=== PATIENT | male | born 1980 | race Caucasian/White ===

== ENCOUNTER 2016-09-06 18:13 | Emergency (ER) | payer OTHER ==
[2016-09-06] MEDS ORDERED: Lidocaine 1% w/Epinephrine 1:100K 20 ML VIAL ONE (18:49)
--- NOTE | 2016-09-06 19:29 | ERRECORD ---
[facility] EMERGENCY RECORD HPI ABSCESS (18:49 SROB) CHIEF COMPLAINT: Patient presents for evaluation of swelling, Patient presents for evaluation of pain. HISTORIAN: History provided by patient, This 36 yo male co onset of pain, swelling redness on left adams for the last 3 days, with increase swelling and tenderness today. LOCATION: Symptoms are localized, most severe to left adams. QUALITY: Pain is dull in nature, described as throbbing. SEVERITY: Maximum severity of pain rated as 7/10, Current severity of pain rated as 7/10. TIME COURSE: Gradual onset of symptoms. ASSOCIATED WITH: No associated symptoms. COMPLICATING FACTORS: No complicating factors for wound healing. EXACERBATED BY: Patient's condition exacerbated by nothing. TETANUS: Tetanus status up to date. ROS (18:51 SROB) CONSTITUTIONAL: Negative constitutional review of systems. EYES: Negative eye review of systems. ENT: Negative ears, nose, throat review of systems. CARDIOVASCULAR: Negative cardiovascular review of systems. RESPIRATORY: Negative respiratory review of systems. GI: Negative gastrointestinal review of systems. GENITOURINARY MALE: Negative genitourinary review of systems. SKIN: psoriasis as well as abscess on left adams. NEUROLOGIC: Negative neurologic review of systems. HEMO/LYMPHATIC: Normal hematologic/lymphatic system review. PSYCHIATRIC: Negative psychiatric review of systems. PAST MEDICAL HISTORY MEDICAL HISTORY: No past medical history, Tetanus not up to date. (18:28 EPIE) Notes: Psoriasis. (18:53 SROB) MALE SURGICAL HISTORY: Surgical history of orthopedic surgery, left foot. (18:28 EPIE) SEE NN. (18:53 SROB) PSYCHIATRIC HISTORY: No previous psychiatric history. (18:28 EPIE) SOCIAL HISTORY: Patient drinks socially, every week, Patient denies drug use, Patient currently uses tobacco, smokes cigarettes, Patient smokes 1 pack per day. (18:28 EPIE) Patient drinks socially, every week, Patient denies drug use, Patient currently uses tobacco, smokes cigarettes. (18:53 SROB) FAMILY HISTORY: Notes: Diabetes mellitis, cardiac, Paternal history of cardiac disease:, Paternal history of diabetes:. (18:53 SROB) NOTES: Nursing records reviewed, Agree with nursing records. (18:53 SROB) &a-1R&a+25V*p+0X*q5757H*c152B*c15G*c2P*p-0X&a-25V&a+1R Name: Redd Lucas : 1980 M36 MedRec: [id number] AcctNum: [id number] Prepared: Sat Sep 06, 2016 19:24 by Interface Page 1 of 3 pMD [facility] EMERGENCY RECORD KNOWN ALLERGIES No Known Drug Allergies CURRENT MEDICATIONS (18:27 EPIE) None VITAL SIGNS (18:24 EPIE) VITAL SIGNS: BP: 156/89, Pulse: 106, Resp: 18 (Non-Labored), Temp: 97.7 (Oral), Pain: 7, O2 sat: 97 on Room Air, Time: 09/06/2016 18:24. PHYSICAL EXAM (18:52 SROB) CONSTITUTIONAL: Vital signs reviewed. HEAD: Head exam normal. EYES: Eye exam normal. NECK: Neck exam normal. RESPIRATORY CHEST: Respiratory and chest exam normal. CARDIOVASCULAR: Cardiovascular assessment normal. ABDOMEN MALE: Abdominal exam normal. UPPER EXTREMITY: Upper extremity exam normal. LOWER EXTREMITY: Lower extremity exam included findings of inspection abnormal, There is a fluctuant tender mass in the mid left adams area measuring about 4 cm in diameter. NEURO: Neuro exam normal. SKIN: See extremity exam for description of left adams abscess. PSYCHIATRIC: Psychiatric exam normal. PROBLEM LIST No recorded problems DIAGNOSIS (19:13 SROB) FINAL: PRIMARY: cutaneous abscess left leg, ADDITIONAL: cutaneous abascess left leg. PRESCRIPTION Bactrim DS: TABLET : 800 mg-160 mg : ORAL : Quantity: 2 Unit: tab(s) Route: ORAL Schedule: 2 times a day (after meals) Dispense: 40 Unit: tab(s) May substitute. Refills: No Refills . (19:09 SROB) NOTES: No Refills. (19:09 SROB) Bactroban topical ointment: OINTMENT (GRAM) : 2 % : TOPICAL : Quantity: 1 Unit: sukhdeep Route: TOPICAL Schedule: 3 times a day Dispense: 1 Unit: Tube May substitute. Refills: No Refills . (19:11 SROB) NOTES: Apply to both nostrils inside 3 times daily No Refills. (19:11 SROB) acetaminophen-codeine: TABLET : 325 mg-30 mg : ORAL : Quantity: 1-2 Unit: tab(s) Route: ORAL Schedule: every 6 hours PRN Dispense: 20 Unit: tab(s) May substitute. Refills: No Refills . (19:12 SROB) &a-1R&a+25V*p+0X*[id number]*c152B*c15G*c2P*p-0X&a-25V&a+1R Name: Redd Lucas : 1980 M36 MedRec: [id number] AcctNum: [id number] Prepared: Burton Sep 06, 2016 19:24 by Interface Page 2 of 3 pMD [facility] EMERGENCY RECORD NOTES: No Refills. (19:12 SROB) DISPOSITION PATIENT: Disposition Type: Discharge, Disposition: *Discharge Home, Disposition Transport: Ambulatory, Condition: Good. (19:12 SROB) Patient left the department. (19:23 MBOS) Mayo: EPIE=GUERRERO Hardy, Caron MBOS=GUERRERO Gonsales, Megan SROB=MD Jose Cruz, [facility] &a-1R&a+25V*p+0X*r8206B*c152B*c15G*c2P*p-0X&a-25V&a+1R Name: Redd Lucas : 1980 M36 MedRec: [id number] AcctNum: [id number] Prepared: Burton Sep 06, 2016 19:24 by Interface Page 3 of 3 pMD MTDD
--- NOTE | 2016-09-06 19:32 | PICIS ---
[facility] EMERGENCY RECORD TRIAGE ([facility] Sep 06, 2016 18:27 EPIE) TRIAGE NOTES: Pt states he has a left leg abscess starting a few days ago. Pt states that it was red 3 days ago and started getting big (knot) last night. ([facility] Sep 06, 2016 18:27 EPIE) PATIENT: NAME: Redd Lucas, AGE: 36, GENDER: male, : [facility] 1980, TIME OF GREET: Sat Sep 06, 2016 18:13, PREFERRED LANGUAGE: Albanian, ETHNICITY: Not or , ECODE BILLING MAP: [facility], SSN: [id number], Zip Code: [address], KG WEIGHT: 158.76, PHONE: , , , PERSON ID: [id number], PCP: none. ([facility] Sep 06, 2016 18:27 EPIE) COMPLAINT: LEFT LEG ABSCESS. ([facility] Sep 06, 2016 18:27 EPIE) ADMISSION: URGENCY: 4 Non Urgent, ADMISSION SOURCE: Home, TRANSPORT: CAR, BED: TRIAGE. ([facility] Sep 06, 2016 18:27 EPIE) TRIAGE SCREENING: Patient denies suicidal ideation, Patient denies presence of domestic violence. (18:28 EPIE) TREATMENTS IN PROGRESS: Treatments given Prehospital: motrin in the AM. (18:28 EPIE) PROVIDERS: TRIAGE NURSE: Caron Hardy RN. ([facility] Sep 06, 2016 18:27 EPIE) VITAL SIGNS: BP 156/89, Pulse 106, Resp 18, (Non-Labored), Temp 97.7, (Oral), Pain 7, O2 Sat 97, on Room Air, Time 09/06/2016 18:24. (18:24 EPIE) PREVIOUS VISIT ALLERGIES: No Known Drug Allergies. ([facility] Sep 06, 2016 18:27 EPIE) No Known Drug Allergies. (18:28 EPIE) KNOWN ALLERGIES No Known Drug Allergies CURRENT MEDICATIONS (18:27 EPIE) None VITAL SIGNS (18:24 EPIE) VITAL SIGNS: BP: 156/89, Pulse: 106, Resp: 18 (Non-Labored), Temp: 97.7 (Oral), Pain: 7, O2 sat: 97 on Room Air, Time: 09/06/2016 18:24. NURSING ASSESSMENT: SKIN (18:35 EPIE) CONSTITUTIONAL: Patient arrives ambulatory, Gait steady, History obtained from patient, Patient appears comfortable, Patient cooperative, Patient alert, Oriented to person, place and time, Skin warm, Skin dry, Skin normal in color, Mucous membranes pink, Mucous membranes moist, Patient is well-groomed. PAIN: aching pain, throbbing pain, left adams, Onset of pain 09/03/2016, on a scale 0-10 patient rates pain as 7. SKIN: Skin assessment findings include skin warm, Skin dry, Skin normal in color, Inspection findings include redness, to left adams, Inspection findings include signs of infection, to left adams, Notes: pt has abscess to &a-1R&a+25V*p+0X*k4301V*c152B*c15G*c2P*p-0X&a-25V&a+1R Name: Redd Lucas : 1980 M36 MedRec: [id number] AcctNum: [id number] Prepared: Sat Sep 06, 2016 19:31 by Interface Page 1 of 5 pMD [facility] EMERGENCY RECORD left adams. Pt has hx of multiple abscess'. NURSING PROCEDURE: DISCHARGE NOTE (19:21 MBOS) DISCHARGE: Patient discharged to home, ambulating without assistance, driving self, unaccompanied, Summary of Care printed/ provided, Discharge instructions given to patient, Simple or moderate discharge teaching performed, Prescriptions given and instructions on side effects given, Above person(s) verbalized understanding of discharge instructions and follow-up care, Patient treated and evaluated by physician. NURSING PROCEDURE: WOUND CARE (19:13 MBOS) PATIENT IDENTIFIER: Patient actively involved in identification process, Patient's identity verified by patient stating name, Patient's identity verified by patient stating date, Patient's identity verified by hospital ID bracelet. TIMEOUT: Prior to procedure, correct patient verified by, Correct procedure verified, Correct site verified, Physician performing procedure Dr. Billingsley. WOUND CARE: Wound care indicated to promote healing, Wound site: left lower leg, Cause of wound: abscess/cellulitis, Local infiltration with. FOLLOW-UP: After procedure, simple dressing applied, using 4x4 dressing, wrapped with 4 inch conform bandage, After procedure, capillary refill less than 2 seconds, After procedure, distal circulation intact, After procedure, distal motor intact, After procedure, distal sensation intact, After procedure, distal pulses present. SAFETY: Side rails up, Cart/Stretcher in lowest position, Call light within reach, Hospital ID band on. ORDER DETAILS Order Name: chart element #1, Status: Active, Time: 19:13 09/06/2016, User: System, - Ordered for: MD Billingsley Sam, - Entered by: GUERRERO Gonsales Marie - Burton Sep 06, 2016 19:13, - Quantity: 1, Order Name: chart element #4, Status: Active, Time: 19:13 09/06/2016, User: System, - Ordered for: MD Billingsley Sam, - Entered by: GUERRERO Gonsales Marie - Sat Sep 06, 2016 19:13, - Quantity: 1. HPI ABSCESS (18:49 SROB) CHIEF COMPLAINT: Patient presents for evaluation of swelling, Patient presents for evaluation of pain. HISTORIAN: History provided by patient, This 36 yo male co onset of pain, swelling redness on left adams for the last 3 days, with increase swelling and tenderness today. LOCATION: Symptoms are localized, most severe to &a-1R&a+25V*p+0X*x9766Z*c152B*c15G*c2P*p-0X&a-25V&a+1R Name: Redd Lucas : 1980 M36 MedRec: [id number] AcctNum: [id number] Prepared: Sat Sep 06, 2016 19:31 by Interface Page 2 of 5 pMD [facility] EMERGENCY RECORD left adams. QUALITY: Pain is dull in nature, described as throbbing. SEVERITY: Maximum severity of pain rated as 7/10, Current severity of pain rated as 7/10. TIME COURSE: Gradual onset of symptoms. ASSOCIATED WITH: No associated symptoms. COMPLICATING FACTORS: No complicating factors for wound healing. EXACERBATED BY: Patient's condition exacerbated by nothing. TETANUS: Tetanus status up to date. ROS (18:51 SROB) CONSTITUTIONAL: Negative constitutional review of systems. EYES: Negative eye review of systems. ENT: Negative ears, nose, throat review of systems. CARDIOVASCULAR: Negative cardiovascular review of systems. RESPIRATORY: Negative respiratory review of systems. GI: Negative gastrointestinal review of systems. GENITOURINARY MALE: Negative genitourinary review of systems. SKIN: psoriasis as well as abscess on left adams. NEUROLOGIC: Negative neurologic review of systems. HEMO/LYMPHATIC: Normal hematologic/lymphatic system review. PSYCHIATRIC: Negative psychiatric review of systems. PAST MEDICAL HISTORY MEDICAL HISTORY: No past medical history, Tetanus not up to date. (18:28 EPIE) Notes: Psoriasis. (18:53 SROB) MALE SURGICAL HISTORY: Surgical history of orthopedic surgery, left foot. (18:28 EPIE) SEE NN. (18:53 SROB) PSYCHIATRIC HISTORY: No previous psychiatric history. (18:28 EPIE) SOCIAL HISTORY: Patient drinks socially, every week, Patient denies drug use, Patient currently uses tobacco, smokes cigarettes, Patient smokes 1 pack per day. (18:28 EPIE) Patient drinks socially, every week, Patient denies drug use, Patient currently uses tobacco, smokes cigarettes. (18:53 SROB) FAMILY HISTORY: Notes: Diabetes mellitis, cardiac, Paternal history of cardiac disease:, Paternal history of diabetes:. (18:53 SROB) NOTES: Nursing records reviewed, Agree with nursing records. (18:53 SROB) PHYSICAL EXAM (18:52 SROB) CONSTITUTIONAL: Vital signs reviewed. HEAD: Head exam normal. EYES: Eye exam normal. NECK: Neck exam normal. RESPIRATORY CHEST: Respiratory and chest exam normal. CARDIOVASCULAR: Cardiovascular assessment normal. &a-1R&a+25V*p+0X*t5412I*c152B*c15G*c2P*p-0X&a-25V&a+1R Name: Redd Lucas : 1980 M36 MedRec: [id number] AcctNum: [id number] Prepared: Sat Sep 06, 2016 19:31 by Interface Page 3 of 5 pMD [facility] EMERGENCY RECORD ABDOMEN MALE: Abdominal exam normal. UPPER EXTREMITY: Upper extremity exam normal. LOWER EXTREMITY: Lower extremity exam included findings of inspection abnormal, There is a fluctuant tender mass in the mid left adams area measuring about 4 cm in diameter. NEURO: Neuro exam normal. SKIN: See extremity exam for description of left adams abscess. PSYCHIATRIC: Psychiatric exam normal. EVENTS TRANSFER: Triage to Emergency Triage. (Sat Sep 06, 2016 18:27 EPIE) Emergency Triage to Emergency Room -04. (18:27 EPIE) Removed from Emergency Emergency Room -04. (19:23 MBOS) INCISION AND DRAINAGE (18:55 SROB) TIMEOUT: Side and/or site verified, Patient identification confirmed, Sterile procedures observed. INCISION AND DRAINAGE: Side and/or site verified, Patient identification confirmed, Sterile procedures observed, Verbal consent obtained, Incision and drainage indicated for cutaneous abscess, 1% Lidocaine with epinephrine used, Incision and drainage of leg abscess, Incision was made over area of fluctuance, Explored for loculations, Irrigated, Packed with sterile gauze, Drained pus, After procedure, neurovascular status normal, There were no complications, Tetanus status up to date. PROBLEM LIST No recorded problems DIAGNOSIS (19:13 SROB) FINAL: PRIMARY: cutaneous abscess left leg, ADDITIONAL: cutaneous abascess left leg. DISPOSITION PATIENT: Disposition Type: Discharge, Disposition: *Discharge Home, Disposition Transport: Ambulatory, Condition: Good. (19:12 SROB) Patient left the department. (19:23 MBOS) INSTRUCTION (19:15 SROB) DISCHARGE: ABSCESS, I AND D. FOLLOWUP: Follow up with Primary Care Physician in 3-4 days. SPECIAL: Use phisoderm liquid soap to bathe with daily for a week while using the Bactroban to eradicate staph. REturn to ED for removal of packing in 3 days if it does not fall out. PRESCRIPTION Bactrim DS: TABLET : 800 mg-160 mg : ORAL : Quantity: 2 Unit: tab(s) Route: ORAL Schedule: 2 times a day (after meals) &a-1R&a+25V*p+0X*d3874E*c152B*c15G*c2P*p-0X&a-25V&a+1R Name: Redd Lucas : 1980 M36 MedRec: [id number] AcctNum: [id number] Prepared: Sat Sep 06, 2016 19:31 by Interface Page 4 of 5 pMD [facility] EMERGENCY RECORD Dispense: 40 Unit: tab(s) May substitute. Refills: No Refills . (19:09 SROB) NOTES: No Refills. (19:09 SROB) Bactroban topical ointment: OINTMENT (GRAM) : 2 % : TOPICAL : Quantity: 1 Unit: sukhdeep Route: TOPICAL Schedule: 3 times a day Dispense: 1 Unit: Tube May substitute. Refills: No Refills . (19:11 SROB) NOTES: Apply to both nostrils inside 3 times daily No Refills. (19:11 SROB) acetaminophen-codeine: TABLET : 325 mg-30 mg : ORAL : Quantity: 1-2 Unit: tab(s) Route: ORAL Schedule: every 6 hours PRN Dispense: 20 Unit: tab(s) May substitute. Refills: No Refills . (19:12 SROB) NOTES: No Refills. (19:12 SROB) IMAGING (19:22 MBOS) DIS: Image captured from scanner. Page 2 added. Image captured from scanner. *SUPPLY CHARGE SHEET: Image captured from scanner. ADMIN (19:15 SROB) DIGITAL SIGNATURE: MD Jose Cruz, [place]. Mayo: EPIE=GUERRERO Hardy, Caron MBOS=GUERRERO Gonsales Marie SROB=MD Jose Cruz, [place] &a-1R&a+25V*p+0X*n2488K*c152B*c15G*c2P*p-0X&a-25V&a+1R Name: Redd Lucas : 1980 M36 MedRec: [id number] AcctNum: [id number] Prepared: Burton Sep 06, 2016 19:31 by Interface Page 5 of 5 pMD MTDD
== END 2016-09-06 19:18 | disposition home or self-care (01) ==
LOC: NAV ERS 18:13
DX: L02.416 Cutaneous abscess of left lower limb (principal); F17.210 Nicotine dependence, cigarettes, uncomplicated
CPT/HCPCS: 10060; J2001

== ENCOUNTER 2021-03-10 19:29 | Emergency (ER) | payer OTHER ==
[2021-03-10 19:50] LABS: Bilirubin Negative (Negative); Blood, Urine Moderate (Negative); Glucose, Urine (Dipstick) Negative (Negative); Ketone, Urine Negative (Negative); Leukocyte Small (Negative); Nitrite Positive (Negative); Protein, Urine (Dipstick) 100 mg/dL (Neg-Trace)
[2021-03-10 19:51] LABS: Clarity Hazy (Clear)
[2021-03-10] MEDS ORDERED: Acetaminophen 500 MG TAB ONE (19:51)
[2021-03-10 19:58] LABS: Bacteria/HPF 3+ HPF (None Seen); RBC/HPF 0-3 HPF (0-3); Squamous Epithelial 0-3 HPF (0-3)
[2021-03-10] MEDS ORDERED: Lidocaine 1% (PF) 30 ML VIAL ONE (20:11)
[2021-03-10] MEDS ORDERED: cefTRIAXone\\ROCEPHIN 2 GM VIAL ONE (20:11)
[2021-03-10] MEDS ORDERED: Sodium Chloride 0.9% 100 ML ONE (20:13)
[2021-03-10] MEDS ORDERED: Sodium Chloride 0.9% 1,000 ML ONE (20:15)
== END 2021-03-10 21:40 | disposition left against medical advice (07) ==
LOC: NAV ERS 19:29
DX: N41.0 Acute prostatitis (principal); F17.290 Nicotine dependence, other tobacco product, uncomplicated
CPT/HCPCS: 81003; 81015; 87077; 87086; 87186; 96365; J0696; J2001; J3490; J7050

== ENCOUNTER 2021-12-22 19:12 | Emergency (ER) | payer BC, OTHER ==
[2021-12-22] MEDS ORDERED: Ketorolac Tromethamine 30 MG/ML VIAL ONE (19:57)
== END 2021-12-22 20:12 | disposition home or self-care (01) ==
LOC: NAV ERS 19:12
DX: S86.811A Strain of other muscle(s) and tendon(s) at lower leg level, right leg, initial encounter (principal); F17.290 Nicotine dependence, other tobacco product, uncomplicated; X50.9XXA Other and unspecified overexertion or strenuous movements or postures, initial encounter; Y93.02 Activity, running
CPT/HCPCS: 99283; J1885